=== PATIENT | female | born 1945 | race Caucasian/White ===

== ENCOUNTER 2021-10-28 20:07 | Observation (INO) | payer MEDICARE, OTHER ==
[2021-10-28] MEDS ORDERED: Ondansetron PF 4 MG/2 ML Vial IVP PRN (21:32)
[2021-10-28] MEDS ORDERED: Calcium Carbonate 500 MG ChewTAB PO PRN (21:32)
[2021-10-28] MEDS ORDERED: Acetaminophen 325 MG TAB PO PRN (21:32)
[2021-10-28] MEDS ORDERED: Senokot S 8.6-50 MG TAB PO PRN (21:32)
[2021-10-28] MEDS ORDERED: Nitroglycerin 0.4 MG TAB (25 Tab Bottle) SL PRN (21:34)
[2021-10-29] MEDS ORDERED: Lisinopril 10 MG TAB PO SCH ×2 (01:00→09:00)
[2021-10-29] MEDS ORDERED: Sodium Chloride 0.9% 1,000 ML IV SCH (01:00)
[2021-10-29] MEDS ORDERED: Potassium Chloride 20 MEQ TAB PO SCH (01:00)
[2021-10-29 01:04] VITALS: BMI 25.9
[2021-10-29 04:22] LABS: Anion Gap 12 mmol/L (10-20); BUN (Urea Nitrogen) 11 mg/dL (9.8-20.1); Calc. Creatinine Clearance 59 mL/min (70-130); Calcium 8.6 mg/dL (7.8-10.44); Carbon Dioxide 24 mmol/L (23-31); Chloride 102 mmol/L (98-107); Estimated GFR 76; Glucose 87 mg/dL (83-110); Potassium 3.7 mmol/L (3.5-5.1); Sodium 134 mmol/L (136-145)
[2021-10-29 08:43] LABS: Bilirubin Neg (Negative); Blood, Urine Negative (Negative); Clarity Clear (Clear); Glucose, Urine (Dipstick) Normal (Negative); Ketone, Urine Negative (Negative); Leukocyte Negative (Negative); Nitrite Negative (Negative); Protein, Urine (Dipstick) Negative (Neg-Trace); Specific Gravity, Urine 1.005 (1.002-1.036); Urobilinogen Normal mg/dL (Less than 2)
[2021-10-29 08:49] LABS: Bacteria/HPF None Seen HPF (None Seen); RBC/HPF None Seen HPF (0-3); Squamous Epithelial None Seen HPF (0-3); WBC/HPF None Seen HPF (0-3)
[2021-10-29] MEDS ORDERED: Aspirin 81 mg Enteric Coated Tablet PO SCH (09:00)
[2021-10-29] MEDS ORDERED: Metoprolol Tartrate 25 MG TAB PO SCH (09:00)
[2021-10-29 12:08] VITALS: BP 123/56; TEMP 97.2
[2021-10-29] MEDS ORDERED: Simvastatin 10 MG TAB PO SCH (21:00)
== END 2021-10-29 13:21 | disposition home or self-care (01) ==
LOC: CSHTELE 20:07
PROVIDERS: ADMIT Nurse Practitioner Family; ATTEND Nurse Practitioner Family
DX: E87.1 Hypo-osmolality and hyponatremia (principal); R07.89 Other chest pain; I12.9 Hypertensive chronic kidney disease with stage 1 through stage 4 chronic kidney disease, or unspecified chronic kidney disease; N18.2 Chronic kidney disease, stage 2 (mild); E78.5 Hyperlipidemia, unspecified; I48.0 Paroxysmal atrial fibrillation; K21.9 Gastro-esophageal reflux disease without esophagitis; Z86.73 Personal history of transient ischemic attack (TIA), and cerebral infarction without residual deficits; Z88.5 Allergy status to narcotic agent
CPT/HCPCS: 36415; 80048; 81001; 84443; G0378; J7050